=== PATIENT | female | born 1965 | race Caucasian/White ===

== ENCOUNTER 2022-10-04 00:42 | Inpatient (IN) | payer SELFPAY ==
[2022-10-04] VITALS (59 sets, daily range): BP systolic 87–185; BP diastolic 46–133; PULSE 71–159; RESP 16–27; TEMP 36.1–37.2; O2SAT 89–98; BMI 38.2
--- NOTE | 2022-10-04 00:55 | ECG_ITS ---
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 Measurements Intervals [place] Rate: 155 P: 0 [place]: 0 QRS: -33 QRSD: 95 T: 87 QT: 304 QTc: 488 Interpretive Statements ATRIAL FIBRILLATION WITH RAPID VENTRICULAR RESPONSE WITH ABERRANT CONDUCTION OR VENTRICULAR PREMATURE COMPLEXES LEFT AXIS DEVIATION [QRS AXIS < -30] MINIMAL VOLTAGE CRITERIA FOR LVH, CONSIDER NORMAL VARIANT [MEETS CRITERIA IN ONE OF: R(aVL), S(V1), R(V5), R(V5/V6)+S(V1)] POSSIBLE ANTERIOR MYOCARDIAL INFARCTION , PROBABLY OLD [30 ms Q WAVE IN V3/V4, OR R < 0.2 mV IN V4] ST DEPRESSION, CONSIDER SUBENDOCARDIAL INJURY [0.1+ mV ST DEPRESSION] CRITICAL TEST RESULT No previous ECG available for comparison Electronically Signed On 10-04-2022 16:44:38 EXPLOSIVE EXPERT by Mary Zavaleta M.D. [id number]
--- NOTE | 2022-10-04 01:10 | ED_ITS ---
HPI - Nausea/Vomiting/Diarrhea General: Chief complaint: Nausea/Vomiting/Diarrhea Stated complaint: V\ABD Pain, Heart Racing Time Seen by Provider: 10/04/22 00:57 Source: patient Mode of arrival: ambulatory Limitations: no limitations History of Present Illness: 57-year-old female states she has been having nausea and vomiting this evening states she has not felt well she states that she has had multiple episodes of vomiting she had some epigastric abdominal pain she had some palpitations her heart rate here is elevated as well with A-fib with RVR she denies any shortness of breath denies any fever. Associated nausea: Yes Associated symtoms: Reports nausea; Denies chest pain, dysuria or headache(s) Review of Systems Const: Denies: fever(s), chills, body aches or change in appetite Eyes: Denies: blurry vision or eye discomfort ENMT: Denies: throat pain or dental pain Card: Denies: chest pain Resp: Denies: dyspnea GI: Reports: abdominal pain, nausea and vomiting : Denies: dysuria Musc: Denies: neck pain or back pain Skin/Breast: Denies: rash Neuro: Denies: headache(s) Psych: Denies: depression Richardson/Lymph: Denies: easy bruising All/Imm: Denies: urticaria PFSH ED PFSH: Medical History (Updated 10/04/22 @ 03:36 by Puja Dubois MD) No pertinent past medical history Social History (Updated 10/04/22 @ 01:12 by Puja Dubois MD) Substance/Drug Use: never Physical Exam Const: COMMON NORMALS: patient oriented x3 GENERAL APPEARANCE: ill appearing HENMT: COMMON NORMALS: normocephalic and atraumatic HEAD & SCALP: normocephalic and atraumatic Eye: COMMON NORMALS: Equal, round and reactive pupils present and EOMs intact bilaterally PUPIL: Yes Equal, round and reactive pupils present Neck/C-Spine: COMMON NORMALS: full ROM and supple Chest: COMMONS NORMALS: normal inspection of the chest and normal palpation of entire chest wall Resp: COMMON NORMALS: normal respiratory effort, No retractions, No use of accessory muscles and clear to auscultation bilaterally AUSCULTATION: clear to auscultation bilaterally Cardio: COMMON NORMALS: No murmurs present (Cardio) RATE: tachycardic RHYTHM: abnormal rhythm irregularly irregular GI: COMMON NORMALS: Normal to inspection, nondistended, normoactive bowel sounds present, Soft to palpation, non-tender and no masses PALPATION: Yes Soft to palpation Extremity: COMMON NORMALS: normal to inspection and full ROM Neuro: COMMON NORMALS: patient oriented x3, moves all extremities and no focal motor deficits Psych: COMMON NORMALS: mental status grossly normal, Normal thought process present and cooperative THOUGHT PROCESS: Normal thought process present Skin: COMMON NORMALS: no rashes or lesions noted and no wounds GENERAL SKIN EXAM: no rashes or lesions noted Course Vital Signs: Vital signs: Vital Signs Temperature 97.0 F L 10/04/22 00:50 Pulse Rate 116 H 10/04/22 02:50 Respiratory Rate 20 H 10/04/22 02:50 Blood Pressure 134/85 10/04/22 02:50 Pulse Oximetry 96 10/04/22 02:50 Oxygen Delivery Me thod 10/04/22 02:50 MDM - Nausea/Vomiting/Diarrhea Medical Decision Making Patient presents here with A-fib with RVR she also has appendicitis patient st rae on a Cardizem drip she is also on IV antibiotics spoke to hospitalist along with surgeon will admit at this time. Lab Data 10/04/22 01:20 10/04/22 01:20 Radiology Impressions Chest X-Ray 10/04/22 01:10 IMPRESSION: No acute findings. Abdomen/Pelvis CT 10/04/22 01:28 IMPRESSION: Positive for acute appendicitis. No convincing evidence of perforation. ADDENDUM: 10/04/22 0318 THIS REPORT CONTAINS FINDINGS THAT MAY BE CRITICAL TO PATIENT CARE. The findings were verbally communicated via telephone conference with PUJA DUBOIS at 3:17 AM CLINICAL APPLICATIONS SPECIALIST on 10/04/2022. The findings were acknowledged and understood. Laboratory Results WBC 20.3 10^3/uL (4.0-10.0) H 10/04/22 01:20 RBC 5.29 10^6/uL (4.1-5.3) 10/04/22 01:20 Hgb 15.9 g/dL (11.5-15.3) H 10/04/22 01:20 Hct 46.8 % (37.0-47.0) 10/04/22 01:20 MCV 88.5 fl (81-99) 10/04/22 01:20 MCH 30.1 pg (28.0-34.0) 10/04/22 01:20 MCHC 34.0 g/dL (30.0-36.0) 10/04/22 01:20 RDW 13.6 % (12.1-15.1) 10/04/22 01:20 Plt Count 354 10^3/cmm (130-400) 10/04/22 01:20 MPV 10.3 fL (7.4-10.4) 10/04/22 01:20 Neut % (Auto) 85.1 % 10/04/22 01:20 Lymph % (Auto) 10.5 % 10/04/22 01:20 [place] % (Auto) 3.1 % 10/04/22 01:20 Eos % (Auto) 0.2 % 10/04/22 01:20 Baso % (Auto) 0.3 % 10/04/22 01:20 Neut # (Auto) 17.27 10^3/uL (1.8-7.7) H 10/04/22 01:20 Lymph # (Auto) 2.1 10^3/uL (0.8-4.8) 10/04/22 01:20 [place] # (Auto) 0.6 10^3/uL (0.2-0.9) 10/04/22 01:20 Eos # (Auto) 0.0 10^3/uL (0.0-0.8) 10/04/22 01:20 Baso # (Auto) 0.1 10^3/uL (0.0-0.1) 10/04/22 01:20 Nucleated RBC % (auto) 0 % 10/04/22 01:20 Nucleated RBCs # 0.0 /100WBC 10/04/22 01:20 Sodium 137 mmol/L (136-145) 10/04/22 01:20 Potassium 3.5 mmol/L (3.5-5.1) 10/04/22 01:20 Chloride 93 mmol/L (98-107) L 10/04/22 01:20 Carbon Dioxide 23 mmol/L (22-29) 10/04/22 01:20 Anion Gap 24.5 (5-19) H 10/04/22 01:20 BUN 19 mg/dL (6-20) 10/04/22 01:20 Creatinine 0.8 mg/dL (0.5-0.9) 10/04/22 01:20 GFR Calculation 73.9 mL/min (90-130) L 10/04/22 01:20 Glucose 180 mg/dL (65-115) H 10/04/22 01:20 Calculated Osmolality 291 mOsm/kg (285-295) 10/04/22 01:20 Calcium 10.3 mg/dL (8.5-10.5) 10/04/22 01:20 Total Bilirubin 0.5 mg/dL (0.15-1.2) 10/04/22 01:20 AST 21 U/L (0-32) 10/04/22 01:20 ALT 29 U/L (0-33) 10/04/22 01:20 Alkaline Phosphatase 50 U/L (35-105) 10/04/22 01:20 Troponin T Baseline 7 ng/L (0-10) 10/04/22 01:20 Total Protein 8.5 g/dL (6.6-8.7) 10/04/22 01:20 Albumin 4.7 g/dL (3.5-5.2) 10/04/22 01:20 Globulin 3.8 g/dL (1.3-4.6) 10/04/22 01:20 Lipase 38 U/L (13-60) 10/04/22 01:20 Urine Color Colorless (Yellow) 10/04/22 02:42 Urine Appearance Clear (CLEAR) 10/04/22 02:42 Urine pH 5 (5-7) 10/04/22 02:42 Ur Specific [place] 1.020 (1.005-1.030) 10/04/22 02:42 Urine Protein 3+ (Negative) H 10/04/22 02:42 Urine Glucose (UA) Trace (Normal) H 10/04/22 02:42 Urine Ketones 1+ (Negative) H 10/04/22 02:42 Urine Blood 2+ (Negative) H 10/04/22 02:42 Urine Nitrate Negative (Negative) 10/04/22 02:42 Urine Bilirubin Neg (Negative) 10/04/22 02:42 Urine Urobilinogen Norm mg/dL (Negative) 10/04/22 02:42 Ur Leukocyte Esterase Negative (Negative) 10/04/22 02:42 Urine RBC 0-4 /hpf (0-2) H 10/04/22 02:42 Urine WBC 0-4 /hpf (0-5) H 10/04/22 02:42 Ur Squamous Epith Cells 5-10 /hpf (0-5) H 10/04/22 02:42 Amorphous Sediment Not Reportable 10/04/22 02:42 Urine Bacteria None /hpf (NONE) 10/04/22 02:42 Urine Yeast Trace /hpf 10/04/22 02:42 EKG Data EKG 1: I personally reviewed and interpreted this EKG as follows: EKG interpretation date: 10/04/22 EKG interpretation time: 01:01 Interpretation: afib with rvr hr [address] or t wave abnormalities qrs 95 qtc 391 Critical Care Time Critical Care Time: Critical Care Time: Yes Total Critical Care Time: 40 Attestation: The high probability of a clinically significant, sudden or life threatening deterioration of the patient's cv system(s) required my full and direct attention, intervention and personal management. The critical care time is as shown. This time is in addition to time spent performing any reported procedures but includes the following: [x] Data and vital sign review and interpretation [x] Patient assessment, examination and intervention [x] Documentation [x] Medication orders and management Discharge Plan Discharge Patient Disposition: Admitted As Inpatient Clinical Impression: Atrial fibrillation with RVR, Acute appendicitis Coding Level of Care Code ED Rack Room Worker for Jamison Aparicio
--- NOTE | 2022-10-04 01:10 | XRR_ITS ---
PROCEDURE INFORMATION: Exam: XR Chest Exam date and time: 10/04/2022 1:58 AM Age: 57 years old Clinical indication: Pain; Chest pressure; Patient HX: C/O chest discomfort. Diaphoretic and hypertensive. ; Additional info: Chest pain TECHNIQUE: Imaging protocol: Radiologic exam of the chest. Views: 1 view. COMPARISON: No relevant prior studies available. FINDINGS: Lungs: Unremarkable. No consolidation. Pleural spaces: Unremarkable. No pleural effusion. No pneumothorax. Heart/Mediastinum: Unremarkable. No cardiomegaly. Bones/joints: Unremarkable. XR/XR chest 1V portable [id number] IMPRESSION: No acute findings.
[2022-10-04] MEDS: dilTIAZem 5 mg/mL SDV 5 mL 20 MG IVP (01:19)
[2022-10-04] MEDS: ondansetron 2 mg/ML SDV 2 mL 4 MG IVP ×2 (01:19→05:54)
[2022-10-04] MEDS: sodium chloride 0.9% 1,000 ML 999 ML IV (01:19)
[2022-10-04 01:27] LABS: Basophils # 0.1 10^3/uL (0.0-0.1); Basophils % 0.3 %; Eosinophils % 0.2 %; Hematocrit 46.8 % (37.0-47.0); Hemoglobin 15.9 g/dL (11.5-15.3); Lymphocytes # 2.1 10^3/uL (0.8-4.8); Lymphocytes % 10.5 %; Mean Corpuscular Hemoglobin 30.1 pg (28.0-34.0); Mean Corpuscular Volume 88.5 fl (81-99); Mean Platelet Volume 10.3 fL (7.4-10.4); Monocytes # 0.6 10^3/uL (0.2-0.9); Monocytes % 3.1 %; Neutrophils # 17.27 10^3/uL (1.8-7.7); Neutrophils % 85.1 %; Nucleated Red Blood Cells % 0 %; Platelet Count 354 10^3/cmm (130-400); Red Blood Count 5.29 10^6/uL (4.1-5.3); Red Cell Distribution Width 13.6 % (12.1-15.1); White Blood Count 20.3 10^3/uL (4.0-10.0)
--- NOTE | 2022-10-04 01:28 | CTR_ITS ---
PROCEDURE INFORMATION: Exam: CT Abdomen And Pelvis With Contrast Exam date and time: 10/04/2022 2:10 AM Age: 57 years old Clinical indication: Abdominal pain; Patient HX: C/O epigastric pain; Additional info: Abd pain TECHNIQUE: Imaging protocol: Computed tomography of the abdomen and pelvis with contrast. Radiation optimization: All CT scans at this facility use at least one of these dose optimization techniques: automated exposure control; mA and/or kV adjustment per patient size (includes targeted exams where dose is matched to clinical indication); or iterative reconstruction. Contrast material: OMNI 350; Contrast volume: 100 ml; Contrast route: INTRAVENOUS (IV); REPORTING DATA: Count of CT and Cardiac NM exams in prior 12 months: This patient has received 0 known CTs and 0 known cardiac nuclear medicine studies in the 12 months prior to the current study. COMPARISON: CR (CHEST, ) 10/04/2022 1:58 AM RADIATION DOSE METRICS: Total DLP (mGy-cm): 1017.86 FINDINGS: Lungs: Small calcified granuloma within the lingula. Liver: Normal. No mass. Gallbladder and bile ducts: Normal. No calcified stones. No ductal dilation. Pancreas: Normal. No ductal dilation. Spleen: Normal. No splenomegaly. Adrenal glands: Normal. No mass. Kidneys and ureters: Normal. No hydronephrosis. Stomach and bowel: Unremarkable. No obstruction. No mucosal thickening. Appendix: Abnormally dilated appendix measuring 12 mm transverse diameter. Mild periappendiceal fat stranding. Intraluminal appendicoliths. Intraperitoneal space: Unremarkable. No free air. No significant fluid collection. Vasculature: Unremarkable. No abdominal aortic aneurysm. Lymph nodes: Unremarkable. No enlarged lymph nodes. Urinary bladder: Unremarkable as visualized. Reproductive: Unremarkable as visualized. Bones/joints: Unremarkable. No acute fracture. Soft tissues: Unremarkable. CT/CT abdomen pelvis w con* [id number] IMPRESSION: Positive for acute appendicitis. No convincing evidence of perforation.
[2022-10-04 01:47] LABS: Alanine Aminotransferase 29 U/L (0-33); Albumin Level 4.7 g/dL (3.5-5.2); Alkaline Phosphatase 50 U/L (35-105); Anion Gap 24.5 (5-19); Aspartate Amino Transferase 21 U/L (0-32); Blood Urea Nitrogen 19 mg/dL (6-20); Calcium 10.3 mg/dL (8.5-10.5); Carbon Dioxide 23 mmol/L (22-29); Chloride 93 mmol/L (98-107); Globulin 3.8 g/dL (1.3-4.6); Glomerular Filtration Rate 73.9 mL/min (90-130); Glucose 180 mg/dL (65-115); Lipase 38 U/L (13-60); Osmolality Calculated 291 mOsm/kg (285-295); Potassium 3.5 mmol/L (3.5-5.1); Sodium 137 mmol/L (136-145); Total Bilirubin 0.5 mg/dL (0.15-1.2); Total Protein 8.5 g/dL (6.6-8.7)
[2022-10-04] MEDS: lidocaine 2% viscous 15 ML, aluminum-mag hydrox-simethicon 30 ML, sucralfate oral liq 1 GM PO (01:48)
[2022-10-04 01:49] LABS: Troponin(5th) Baseline 7 ng/L (0-10)
[2022-10-04] MEDS: dilTIAZem 100 MG in sodium chloride 0.9% (add-van) 100 ML IV (01:50)
[2022-10-04] MEDS: iohexol 350 mg/mL 500 mL Btl (per mL) IV (02:12)
--- NOTE | 2022-10-04 02:33 | ECG_ITS ---
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 Measurements Intervals [place] Rate: 123 P: 0 [place]: 0 QRS: -27 QRSD: 88 T: 47 QT: 332 QTc: 476 Interpretive Statements ATRIAL FIBRILLATION WITH RAPID VENTRICULAR RESPONSE POSSIBLE ANTERIOR MYOCARDIAL INFARCTION , PROBABLY OLD [30 ms Q WAVE IN V3/V4, OR R < 0.2 mV IN V4] ABNORMAL RHYTHM ECG Compared to ECG 10/04/2022 01:01:11 Ventricular premature complex(es) no longer present Aberrant conduction of supraventricular beat(s) no longer present Left-axis deviation no longer present ST (T wave) deviation no longer present Myocardial infarct finding still present Electronically Signed On 10-04-2022 16:51:54 BONDERIZER OPERATOR by Mary Zavaleta M.D. [id number]
[2022-10-04] MEDS: dilTIAZem 5 mg/mL SDV 5 mL 10 MG IVP ×2 (02:46→09:02)
[2022-10-04 03:10] LABS: Bilirubin Urine Neg (Negative); Blood Urine 2+ (Negative); Glucose Urine UA Trace (Normal); Ketones Urine 1+ (Negative); Leukocyte Esterase Urine Negative (Negative); Nitrate Urine Negative (Negative); Protein Urine 3+ (Negative); Urine Appearance Clear (CLEAR); Urine Color Colorless (Yellow); Urobilinogen Urine Norm (Negative); pH Urine 5 (5-7)
[2022-10-04 03:11] LABS: Add Urine Microscopic? YES
[2022-10-04 03:14] LABS: RBC Urine 0-4 /hpf (0-2); WBC Urine 0-4 /hpf (0-5)
[2022-10-04] MEDS: piperacillin-tazobactam 3.375 GM in sodium chloride 0.9% (plus) 50 ML IV ×3 (03:43→19:32)
[2022-10-04 04:20] LABS: Troponin 5 2HR 22.45 ng/L (0-10)
[2022-10-04 04:23] LABS: Troponin 5 2HR Delta 15.45 ABS# (0-10)
[2022-10-04] MEDS: famotidine 20 mg/2 mL INJ IVP (05:54)
[2022-10-04] MEDS: amiodarone 50 mg/mL SDV 3 mL 150 MG IVP (06:10)
[2022-10-04 06:24] LABS: NT Pro B Type Natriuretic Pept 80 pg/mL (0-125); Procalcitonin 0.04 ng/mL (0-0.5)
--- NOTE | 2022-10-04 06:24 | P.HP_ITS ---
Providers/Chief Complaint Admitting Physician: Tony Ochoa MD Chief Complaint: V\ABD Pain, Heart Racing History of Present Illness Sayra Mascorro is a 57 year old female with only past medical history of hypertension on medications presented to the ER with abdominal pain in the right lower quadrant along with nausea but no vomiting for last 24 to 36 hours. Patient is not aware if she is passing flatus with last bowel movement yesterday morning. Patient is not complaining of chest pain, palpitation, difficulty in breathing, dizziness. In the ER CT abdomen pelvis was concerning for acute appendicitis and she was found to be in atrial fibrillation with rapid ventricular response. Surgery was consulted and medicine team was consulted for admission further evaluation and management. On examination patient was sitting comfortably in bed without any distress with heart rate ranging in 130s on a Cardizem drip of 15. Review of Systems General: Reports: 10 or more systems reviewed and unremarkable except in HPI and below Const: Denies: fever(s), chills, body aches, change in appetite, change in weight, malaise, night sweats, diaphoresis, change in sleep pattern, daytime sleepiness or snoring Eyes: Denies: change in vision, blurry vision, photophobia, eye discomfort or eye discharge ENMT: Denies: throat pain, enlarged tonsils, hoarseness, mouth pain, oral sores, dry mouth, tinnitus, nasal congestion or post nasal drip Card: Denies: chest pain, palpitations, irregular heart rhythm, edema, swelling of feet/ankles, lightheadedness, syncope, pre-syncope, dyspnea on exertion, orthopnea, leg pain with exertion or acrocyanosis Resp: Denies: dyspnea, productive cough, non-productive cough, wheezing, stridor, pain on inspiration, change in phlegm color, hemoptysis or chest congestion GI: Denies: abdominal pain, nausea, vomiting, hematemesis, coffee ground emesis, dysphagia, heartburn, diarrhea, constipation, bloating, GI cramping, change in bowel habits, pain on defecation, hematochezia or melena : Denies: flank pain, dysuria, urinary frequency, urinary urgency, urinary hesitancy, nocturia or hematuria Musc: Denies: neck pain, back pain, extremity pain, joint pain, joint swelling, joint redness, joint stiffness or limited range of motion Neuro: Denies: headache(s), numbness in extremities, weakness in extremities, sensory changes, lack of coordination, difficulty walking, frequent falls, dizziness, vertigo, confusion, Slurred speech present, difficulty communicating thoughts or seizure-like activity Psych: Denies: anxiety, depression, mood swings, panic attacks, hopelessness or irritability Endo: Denies: polyuria, polydipsia, tired all the time, cold intolerance, excessive sweating, flushing or heat intolerance Richardson/Lymph: Denies: easy bruising or easy bleeding All/Imm: Denies: tongue swelling, facial swelling or acute wheezing Medications/Allergies Home Medications Medication Instructions Recorded Confirmed Last Taken Type Unable to Assess 10/04/22 10/04/22 Unknown History Allergies Allergy/AdvReac Type Severity Reaction Status Date / Time No Known Allergies Allergy Verified 10/04/22 00:50 PFSH Acute PFSH: Medical History (Updated 10/04/22 @ 06:29 by Tony Ochoa MD) Hypertension Surgical History (Updated 10/04/22 @ 06:27 by Tony Ochoa MD) No pertinent past surgical history Family History (Updated 10/04/22 @ 06:27 by Tony Ochoa MD) Denies family history of CAD (coronary artery disease) Chronic kidney disease (CKD) Cancer Social History (Updated 10/04/22 @ 06:28 by Tony Ochoa MD) Smoking and tobacco status: former smoker Alcohol intake: never Substance/Drug Use: never Caregiver/support person: Yes Lives independently: Yes Household members: family Housing: House Vitals/I&O/Wt Last Vital Signs Temp 98.1 F 10/04/22 04:00 Pulse 126 H 10/04/22 06:15 Resp 26 H 10/04/22 06:15 BP 164/100 10/04/22 06:15 Pulse Ox 95 10/04/22 06:15 O2 Del Method 10/04/22 04:30 10/03/22 10/03/22 10/04/22 14:59 22:59 06:59 Intake Total 1079.201 / 1079.201 Output Total 0 / 0 Balance 1079.201 / 1079.201 Weight last 48 hrs Weight 108.182 kg Weight 104.326 kg Physical Exam Narrative: General: No acute distress, AO x3 HEENT: PERRLA, pupils bilaterally equal and reactive Chest: Normal vesicular breath sounds, no added sounds, equal good air entry bilaterally CVS: S1-S2 regular, no murmurs, no tachycardia, no gallops, no rubs Abdomen: Soft, distended, tender in right lower quadrant, bowel sounds sluggish, no organomegaly, Neuro: No focal deficits, no facial deformity, AO x3, power 5/5 in all limbs Data 10/04/22 01:20 10/04/22 01:20 Micro: Microbiology 10/04/22 02:42 Legionella Urinary Antigen - Final Unknown Source A&P Assessment and plan (1) Acute appendicitis: As seen on CT scan. No concerns for perforation. Surgery has been consulted. NPO. Empirically start on Zosyn. D5 NS at 75 cc/h. (2) Atrial fibrillation with RVR: Even though she is on Cardizem for 15 patient remains in RVR. We will switch to amiodarone. Amiodarone 150 mg IV bolus followed by drip as per protocol. Bryan Vasc score: 2 for hypertension and female sex. Discussed in detail with patient regarding need for anticoagulation for stroke prevention. Patient verbalized understanding and is agreeable. For now start on heparin drip with possible concern for patient going to the OR for appendicitis. Can stop 2 hours prior to the OR. Patient will need to be discharged on oral anticoagulation. Patient is agreeable. Echocardiogram once heart rate less than 100. (3) Hypertension: Goal blood pressure less than 140 over 90 mmHg. Start on IV hydralazine 10 mg every 4 hours as needed for systolic blood pressure of more than 170 mmHg. (4) Leukocytosis: Most likely reactive in setting of acute appendicitis. Cannot rule out acute infection. Empiric Zosyn as above. Check blood culture. Plan Full code. Heparin drip will suffice as DVT prophylaxis NPO. Famotidine for PUD prophylaxis Admit to CSU. Attestations Medical Necessity Statement*: Admission for more than 2 months atrial fibrillation with rapid ventricular response, acute appendicitis Diagnoses Acute appendicitis K35.80 Atrial fibrillation with RVR I48.91 Hypertension I10 Leukocytosis D72.829
[2022-10-04 06:25] LABS: Magnesium 1.6 mg/dL (1.7-2.3); Phosphorus 3.4 mg/dL (2.5-4.5); Thyroid Stimulating Hormone 1.41 uIU/mL (0.27-4.20)
[2022-10-04 06:37] LABS: Amphetamines Screen Urine Negative (Negative); Barbiturates Screen Urine Negative (Negative); Benzodiazepines Screen Urine Negative (Negative); Cocaine Screen Urine Negative (Negative); Opiate Screen Urine Negative (Negative); PCP Screen Urine Negative (Negative); THC Screen Urine Negative (Negative)
[2022-10-04 06:38] LABS: Folate Level 6.8 ng/mL (4.8-37.3)
[2022-10-04] MEDS: dextrose 5%-sod chloride 0.9% 1,000 ML 75 ML IV (06:40)
[2022-10-04] MEDS: heparin 5,000 unit/mL INJ 1 mL IV (06:44)
[2022-10-04] MEDS: heparin drip 25,000 UNIT/500 ML PREMIX 31 UNIT IV (06:47)
[2022-10-04] MEDS: hyDRALAzine 20 mg/mL INJ 1 mL 10 MG IVP (06:55)
--- NOTE | 2022-10-04 06:57 | ECG_ITS ---
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 Measurements Intervals [place] Rate: 134 P: 0 [place]: 0 QRS: -27 QRSD: 89 T: 42 QT: 326 QTc: 488 Interpretive Statements ATRIAL FIBRILLATION WITH RAPID VENTRICULAR RESPONSE POSSIBLE ANTERIOR MYOCARDIAL INFARCTION , PROBABLY OLD [30 ms Q WAVE IN V3/V4, OR R < 0.2 mV IN V4] ABNORMAL RHYTHM ECG Compared to ECG 10/04/2022 02:33:56 No significant changes Electronically Signed On 10-04-2022 16:52:08 LEGAL BILLER by Mary Zavaleta M.D. [id number]
[2022-10-04 07:02] LABS: Iron 39 ug/dL (37-145); Percent Saturation 8.3 % (20-50); Total Iron Binding Capacity 466 mcg/dl; Unsaturated Iron Binding 427 ug/dL (112-347)
[2022-10-04 07:17] LABS: Vitamin B12 628 pg/mL (232-1245)
[2022-10-04] MEDS: morphine 4 mg/mL SDV 1 mL 2 MG IVP ×2 (08:06→12:32)
[2022-10-04] MEDS: metoprolol tartrate 1 mg/1 mL SDV 5 mL 5 MG IVP (08:06)
--- NOTE | 2022-10-04 09:30 | PM.MISC ---
Miscellaneous Note Note: She was seen and examined Patient has no history of previous A-fib No active chest pain or shortness of breath complaining of right lower quadrant. Patient lying comfortably in her bed Currently A-fib RVR heart rate 130s Hypertensive Currently on room air Right lower quadrant pain N.p.o. Looks dehydrated Plan Hold heparin in case she goes for surgical intervention today Add Cardizem to amiodarone to control her A-fib heart rate has been ranging between 130s to 140s Blood pressure is high 150s/96 mmHg She was given IV metoprolol this morning as well which did not show much improvement as well We will do echo once heart rate is below 110 Full code N.p.o. Continue IV fluids and antibiotics We will follow-up with general surgery
[2022-10-04 09:42] LABS: Troponin 5 6HR 34.74 ng/L (0-10)
[2022-10-04 09:47] LABS: Troponin 5 6HR Delta 27.74 ng/L (0-12)
--- NOTE | 2022-10-04 10:25 | P.CONIM_ITS ---
Providers/Reason For Consult Consulting Physician/Specialty*: Emergency room physician Reason for Consult*: Acute appendicitis Attending Physician: Tony Ochoa MD History of Present Illness History of Present Illness Sayra Mascorro is a 57 year old female presents to the emergency room with sudden onset of right lower quadrant pain, nausea and vomiting. Patient had multiple episodes of emesis. The patient also noticed a fluttering in her heart. The patient's never had abdominal surgery before. The patient never had pain like this before. The patient's last normal bowel movement was yesterday. The patient denies any history of weight loss. There is nobody sick in the house. The patient describes her pain as constant and crampy. Review of Systems General: Reports: 10 or more systems reviewed and unremarkable except in HPI and below Medications/Allergies Home Medications Medication Instructions Recorded Confirmed Last Taken Type Unable to Assess 10/04/22 10/04/22 Unknown History Allergies Allergy/AdvReac Type Severity Reaction Status Date / Time No Known Allergies Allergy Verified 10/04/22 00:50 Current Medications Generic Name Dose Route Start Last Admin Trade Name Freq PRN Reason Stop Dose Admin Famotidine 20 mg 10/04/22 05:45 10/04/22 05:54 Famotidine 20 Mg/2 Ml Inj IVP 20 mg Q12H JOHNATHON Administration Heparin Sodium (Porcine) 0 unit 10/04/22 05:43 10/04/22 06:44 Heparin 5,000 Unit/Ml Inj 1 Ml IV 5,500 unit PRN PRN Administration Heparin weight-base protocol Protocol Hydralazine HCl 10 mg 10/04/22 06:26 10/04/22 06:55 Hydralazine 20 Mg/Ml Inj 1 Ml IVP 10 mg Q4H PRN Administration SBP more than 170 mmhg Amiodarone HCl 900 mg/ 518 mls @ 0 mls/hr 10/04/22 05:45 10/04/22 06:10 Dextrose/ IV Miscellaneous IV 0 mg/min Supplies .Q0M JOHNATHON 0 mls/hr Titration Protocol Per Protocol Dextrose/Sodium Chloride 1,000 mls @ 75 mls/hr 10/04/22 05:45 10/04/22 06:40 Dextrose 5%-Sod Chloride 0.9% IV 75 mls/hr .[id number] JOHNATHON Administration Heparin Sodium/Sodium Chloride 25,000 unit in 500 mls @ 0 mls/hr 10/04/22 05:45 10/04/22 06:47 Heparin Drip IV 14.86 unit/kg/hr .Q0M JOHNATHON 31 mls/hr Administration Protocol Per Protocol Morphine Sulfate 2 mg 10/04/22 05:43 10/04/22 08:06 Morphine 4 Mg/Ml Sdv 1 Ml IVP 2 mg Q4H PRN Administration SEVERE PAIN Ondansetron HCl 4 mg 10/04/22 05:43 10/04/22 05:54 Ondansetron 2 Mg/Ml Sdv 2 Ml IVP 4 mg Q8H PRN Administration vomiting, or N/V if npo PFSH Acute PFSH: Medical History Hypertension Surgical History No pertinent past surgical history Family History Denies family history of CAD (coronary artery disease) Chronic kidney disease (CKD) Cancer Social History Smoking and tobacco status: former smoker Alcohol intake: never Substance/Drug Use: never Caregiver/support person: Yes Lives independently: Yes Household members: family Housing: House Vitals/I&O/Wt Last Vital Signs Temp 98.1 F 10/04/22 04:00 Pulse 129 H 10/04/22 08:15 Resp 18 10/04/22 08:15 BP 150/96 10/04/22 08:15 Pulse Ox 96 10/04/22 08:15 O2 Del Method 10/04/22 08:15 10/03/22 10/04/22 10/04/22 22:59 06:59 14:59 Intake Total 1106.201 / 1106.201 Output Total 0 / 0 Balance 1106.201 / 1106.201 Weight last 48 hrs Weight 238 lb 8 oz Weight 230 lb Physical Exam Narrative: Generally: An obese female. Currently, in no acute distress HEENT has no cephalic atraumatic, pupils equal round reactive to light. Extr aocular muscles are intact Neck: Free range of motion and nontender. The patient's trachea is midline. There is no thyromegaly Lungs: Clear to auscultation and percussion Heart: Irregular rate and rhythm and tachycardic. I do not appreciate a murmur. Abdomen: Obese, right lower quadrant tenderness with rebound. Patient has positive bowel sounds. There is no rushes or tinkles. There is no hernias that I can appreciate. There is no hepatosplenomegaly Extremities: There is no clubbing cyanosis or edema Neurologic: Patient is awake, alert, oriented x3. Patient moves all 4 extremities without difficulty. The patient sensations intact to light touch throughout Urinary Catheter Management: 2-way Urethral Latex Free: Cath Placed During This Visit: yes Reason for Continuing Indwelling Catheter: Perioperative Use in Selected Surgeries Urinary Catheter Date of Insertion: 10/04/22 Urinary Catheter Time of Insertion: 08:02 Data 10/04/22 01:20 10/04/22 01:20 Micro: Microbiology 10/04/22 09:12 Blood Culture - Preliminary Blood SPECIMEN COLLECTED 10/04/22 09:10 Blood Culture - Preliminary Blood SPECIMEN COLLECTED 10/04/22 02:42 Legionella Urinary Antigen - Final Unknown Source Attestation for Other Data: I personally reviewed and interpreted the following: (I have reviewed all the patient's labs including the CT scan of the abdomen and pelvis.) A&P Assessment and plan (1) Acute appendicitis: We will schedule the patient for a laparoscopic appendectomy. The risk and benefits of the procedure been explained to the patient. The patient seems understand these risk and benefits and would like to proceed. The patient's atrial fibrillation with rapid ventricular response is somewhat complicating. We will let anesthesia work with internal medicine to try to get this under control. Medical decision making: High Coding Level of Care Code 06543 Diagnoses Acute appendicitis K35.80
--- NOTE | 2022-10-04 10:51 | PC.CHAP ---
Pastoral Care Encounter/Spiritual Assessment Type of Contact [] Declined motion picture equipment supervisor visit [] Patient/Family/Request visit [] Outpatient visit [] Follow-up visit [] Physician referral [] Code/Alert [x] Routine visit [] Staff referral [] Actively dying [] Patient sleeping [x] Family support [] [] Out of room [] Palliative care [] [] Receiving care in room [] Pre-surgical visit [] Trauma [] Long length of stay [] ICU visit [] Other: Relational/Emotional Strength [x] Patient feels connected with others/family/visitors/staff [] Distress [] Loneliness/isolation [] Abandonment Spirituality of Patient [x] Person of Brigitte [] Attends Rastafari of their Brigitte [x Believes in Prayer [] Reads Bible or Temple materials [] There are Spiritual issues to be addressed Mobile Phone Salesperson Interventions [x] Prayer [x] Active listening [x] Non-anxious presence [x] Spiritual/emotional support [] Crisis/trauma care [] Spiritual counseling [] Bereavement support [] Provided bereavement packet [] Provided Bible/devotional materials [] Provided toy/stuffed animal, coloring book to patient or family member [] Provided Communion [] Anointing/[place] [] Salvation [x] Completed spiritual assessment [] Other: Impact on Illness or Injury [] Angry [] Fearful [] Anxious [] Often cries [] Exhaustion [] Unable to work [] Unable to attend amish [] Unable to walk/stand [] Unable to read [] Unable to drive [] Unable to eat/drink [] Unable to sleep [] Unable to be with family [] Patient intubated [] Other: Summary Time spent with patient 10 min
--- NOTE | 2022-10-04 11:14 | PM.CONSULT ---
Providers/Reason For Consult Consulting Physician/Specialty*: [place] MD/ Cardiology Reason for Consult*: Pre-op clearance/ atrial fibrillation Requesting Physician: Dr Guidry Attending Physician: Livia Guidry MD History of Present Illness History of Present Illness Sayra Mascorro is a 57 year old female with no significant prior cardiac history as presented with nausea and vomiting. She is found to have acute appendicitis. Cardiology has been consulted to get preop clearance as she went into A-fib with RVR with heart rates in 130s. She has been started on amiodarone drip. EKG showed A-fib with RVR. At time of my evaluation she has converted back to normal sinus rhythm. Denies significant shortness of breath. Blood pressure is borderline elevated. Review of Systems General: Reports: 10 or more systems reviewed and unremarkable except in HPI and below Const: Denies: fever(s), chills, body aches, change in appetite, change in weight, malaise, night sweats, diaphoresis, change in sleep pattern, daytime sleepiness or snoring Eyes: Denies: change in vision, blurry vision, photophobia, eye discomfort or eye discharge ENMT: Denies: throat pain, enlarged tonsils, hoarseness, mouth pain, oral sores, dry mouth, tinnitus, nasal congestion or post nasal drip Card: Denies: chest pain, palpitations, irregular heart rhythm, edema, swelling of feet/ankles, lightheadedness, syncope, pre-syncope, dyspnea on exertion, orthopnea, leg pain with exertion or acrocyanosis Resp: Denies: dyspnea, productive cough, non-productive cough, wheezing, stridor, pain on inspiration, change in phlegm color, hemoptysis or chest congestion GI: Reports: abdominal pain and nausea; Denies: vomiting, hematemesis, coffee ground emesis, dysphagia, heartburn, diarrhea, constipation, bloating, GI cramping, change in bowel habits, pain on defecation, hematochezia or melena : Denies: flank pain, dysuria, urinary frequency, urinary urgency, urinary hesitancy, nocturia or hematuria Musc: Denies: neck pain, back pain, extremity pain, joint pain, joint swelling, joint redness, joint stiffness or limited range of motion Neuro: Denies: headache(s), numbness in extremities, weakness in extremities, sensory changes, lack of coordination, difficulty walking, frequent falls, dizziness, vertigo, confusion, Slurred speech present, difficulty communicating thoughts or seizure-like activity Psych: Denies: anxiety, depression, mood swings, panic attacks, hopelessness or irritability Endo: Denies: polyuria, polydipsia, tired all the time, cold intolerance, excessive sweating, flushing or heat intolerance Richardson/Lymph: Denies: easy bruising or easy bleeding All/Imm: Denies: tongue swelling, facial swelling or acute wheezing Medications/Allergies Home Medications Medication Instructions Recorded Confirmed Last Taken Type Unable to Assess 10/04/22 10/04/22 Unknown History Allergies Allergy/AdvReac Type Severity Reaction Status Date / Time No Known Allergies Allergy Verified 10/04/22 00:50 Current Medications Generic Name Dose Route Start Last Admin Trade Name Freq PRN Reason Stop Dose Admin Famotidine 20 mg 10/04/22 05:45 10/04/22 05:54 Famotidine 20 Mg/2 Ml Inj IVP 20 mg Q12H JOHNATHON Administration Heparin Sodium (Porcine) 0 unit 10/04/22 05:43 10/04/22 06:44 Heparin 5,000 Unit/Ml Inj 1 Ml IV 5,500 unit PRN PRN Administration Heparin weight-base protocol Protocol Hydralazine HCl 10 mg 10/04/22 06:26 10/04/22 06:55 Hydralazine 20 Mg/Ml Inj 1 Ml IVP 10 mg Q4H PRN Administration SBP more than 170 mmhg Amiodarone HCl 900 mg/ 518 mls @ 0 mls/hr 10/04/22 05:45 10/04/22 06:10 Dextrose/ IV Miscellaneous IV 0 mg/min Supplies .Q0M JOHNATHON 0 mls/hr Titration Protocol Per Protocol Dextrose/Sodium Chloride 1,000 mls @ 75 mls/hr 10/04/22 05:45 10/04/22 06:40 Dextrose 5%-Sod Chloride 0.9% IV 75 mls/hr .[id number] JOHNATHON Administration Heparin Sodium/Sodium Chloride 25,000 unit in 500 mls @ 0 mls/hr 10/04/22 05:45 10/04/22 06:47 Heparin Drip IV 14.86 unit/kg/hr .Q0M JOHNATHON 31 mls/hr Administration Protocol Per Protocol Morphine Sulfate 2 mg 10/04/22 05:43 10/04/22 08:06 Morphine 4 Mg/Ml Sdv 1 Ml IVP 2 mg Q4H PRN Administration SEVERE PAIN Ondansetron HCl 4 mg 10/04/22 05:43 10/04/22 05:54 Ondansetron 2 Mg/Ml Sdv 2 Ml IVP 4 mg Q8H PRN Administration vomiting, or N/V if npo PFSH Acute PFSH: Medical History Hypertension Surgical History No pertinent past surgical history Family History Denies family history of CAD (coronary artery disease) Chronic kidney disease (CKD) Cancer Social History Smoking and tobacco status: former smoker Alcohol intake: never Substance/Drug Use: never Caregiver/support person: Yes Lives independently: Yes Household members: family Housing: House Vitals/I&O/Wt Last Vital Signs Temp 98.1 F 10/04/22 04:00 Pulse 129 H 10/04/22 08:15 Resp 18 10/04/22 08:15 BP 150/96 10/04/22 08:15 Pulse Ox 96 10/04/22 08:15 O2 Del Method 10/04/22 08:15 10/03/22 10/04/22 10/04/22 22:59 06:59 14:59 Intake Total 1106.201 / 1106.201 Output Total 0 / 0 Balance 1106.201 / 1106.201 Weight last 48 hrs Weight 238 lb 8 oz Weight 230 lb Physical Exam Narrative: GENERAL: Patient is alert, awake and oriented x3. [] NECK: No jugular vein distension. [] HEENT: No cyanosis. No icterus. No pallor. [] HEART: Regular S1 and S2. No murmur, rub or gallop. [] LUNGS: Clear to auscultate bilaterally. [] ABDOMEN: Soft, nontender and nondistended. Positive bowel sounds. No guarding, rebound or tenderness. [] CENTRAL NERVOUS SYSTEM: Grossly nonfocal. [] EXTREMITIES: Lower extremities with No edema Urinary Catheter Management: 2-way Urethral Latex Free: Cath Placed During This Visit: yes Reason for Continuing Indwelling Catheter: Perioperative Use in Selected Surgeries Urinary Catheter Date of Insertion: 10/04/22 Urinary Catheter Time of Insertion: 08:02 Data 10/04/22 01:20 10/04/22 01:20 Micro: Microbiology 10/04/22 02:42 Bacterial Antigens - Final Urine Kidney 10/04/22 09:12 Blood Culture - Preliminary Blood SPECIMEN COLLECTED 10/04/22 09:10 Blood Culture - Preliminary Blood SPECIMEN COLLECTED 10/04/22 02:42 Legionella Urinary Antigen - Final Unknown Source A&P Assessment and plan (1) Acute appendicitis: (2) Atrial fibrillation with RVR: (3) Hypertension: Plan Patient's Afib with RVR is secondary to appendicitis. Given acuity of her situation, cardiac clearance will not be needed. We will be available for assitance in case of any hemodynamic instability. Amiodarone started. Patient has converted to normal sinus rhythm and has normal heart rate. She is stable. We will get rest of cardiac workup including echocardiogram after the procedure. Thank you for involving us with care of this patient. We will continue to follow. Please call with questions. Consult Attestations Medical Necessity Statement: Care expected to cross 2 midnights. Coding Level of Care Code Acute Code for [facility] Diagnoses Acute appendicitis K35.80 Atrial fibrillation with RVR I48.91 Hypertension I10
[2022-10-04 14:05] LABS: Partial Thromboplastin Time 29.3 SECONDS (23.9-36.7)
--- NOTE | 2022-10-04 15:34 | ANES.PREANE2 ---
Pre-Anesthetic Assessment Height/Weight: Height 1.65 m Weight 108.182 kg Temp Pulse Resp BP Pulse Ox O2 Del Method 99.0 F 90 18 157/74 95 10/04/22 15:19 10/04/22 15:19 10/04/22 15:19 10/04/22 15:19 10/04/22 15:19 10/04/22 15:19 Preop Diagnosis: acute appy Operation Date: 10/04/22 14:40 Proposed Procedures p Laparoscopic Appendectomy(Not Applicable) - Olu Carbajal MD Familial anesthetic complications: None Was Beta Baldomero taken within 24 hours: Yes Was Clonidine taken within 24 hours: N/A Last intake: Intake Last Liquid Date 10/03/22 Last Liquid Time 17:00 Last Solid Date 10/03/22 Last Solid Time 17:00 Social Tobacco and No alcohol Exam alert, oriented x 3, clear to auscultation bilaterally and regular rate & rhythm Airway Mallampati: Class III Dentition: chipped CV/HEM Arrythmia (A fib w/ RVR (new onset) - now self cardioverted to NSR) and Hypertension Metabolic Morbid Obesity Anesthetic Plan ASA status: 3 Anesthesia: General Risk of > 500 ml blood loss (7ml/kg in children): No Medications/Allergies Home Medications Medication Instructions Recorded Confirmed Last Taken Type Unable to Assess 10/04/22 10/04/22 Unknown History Allergies Allergy/AdvReac Type Severity Reaction Status Date / Time No Known Allergies Allergy Verified 10/04/22 00:50 Current Medications Generic Name Dose Route Start Last Admin Trade Name Freq PRN Reason Stop Dose Admin Famotidine 20 mg 10/04/22 05:45 10/04/22 05:54 Famotidine 20 Mg/2 Ml Inj IVP 20 mg Q12H JOHNATHON Administration Heparin Sodium (Porcine) 0 unit 10/04/22 05:43 10/04/22 06:44 Heparin 5,000 Unit/Ml Inj 1 Ml IV 5,500 unit PRN PRN Administration Heparin weight-base protocol Protocol Hydralazine HCl 10 mg 10/04/22 06:26 10/04/22 06:55 Hydralazine 20 Mg/Ml Inj 1 Ml IVP 10 mg Q4H PRN Administration SBP more than 170 mmhg Piperacillin Sod/Tazobactam 50 mls @ 12.5 mls/hr 10/04/22 12:00 10/04/22 12:32 Sod 3.375 gm/ Sodium Chloride IV 12.5 mls/hr Q8H JOHNATHON Administration Protocol Amiodarone HCl 900 mg/ 518 mls @ 0 mls/hr 10/04/22 05:45 10/04/22 06:10 Dextrose/ IV Miscellaneous IV 0 mg/min Supplies .Q0M JOHNATHON 0 mls/hr Titration Protocol Per Protocol Dextrose/Sodium Chloride 1,000 mls @ 75 mls/hr 10/04/22 05:45 10/04/22 06:40 Dextrose 5%-Sod Chloride 0.9% IV 75 mls/hr .[id number] JOHNATHON Administration Heparin Sodium/Sodium Chloride 25,000 unit in 500 mls @ 0 mls/hr 10/04/22 05:45 10/04/22 06:47 Heparin Drip IV 14.86 unit/kg/hr .Q0M JOHNATHON 31 mls/hr Administration Protocol Per Protocol Morphine Sulfate 2 mg 10/04/22 05:43 10/04/22 12:32 Morphine 4 Mg/Ml Sdv 1 Ml IVP 2 mg Q4H PRN Administration SEVERE PAIN Ondansetron HCl 4 mg 10/04/22 05:43 10/04/22 05:54 Ondansetron 2 Mg/Ml Sdv 2 Ml IVP 4 mg Q8H PRN Administration vomiting, or N/V if npo PFSH Anesthesia Medical History Hypertension Surgical History No pertinent past surgical history Family History Denies family history of CAD (coronary artery disease) Chronic kidney disease (CKD) Cancer Social History Smoking and tobacco status: former smoker Alcohol intake: never Substance/Drug Use: never Caregiver/support person: Yes Lives independently: Yes Household members: family Housing: House Data Anesthesia 10/04/22 01:20 10/04/22 01:20 Short CBC 10/04/22 Range/Units 01:20 WBC 20.3 H (4.0-10.0) 10^3/uL Hgb 15.9 H (11.5-15.3) g/dL Hct 46.8 (37.0-47.0) % MCV 88.5 (81-99) fl Plt Count 354 (130-400) 10^3/cmm Neut % (Auto) 85.1 % Neut # (Auto) 17.27 H (1.8-7.7) 10^3/uL BMP 10/04/22 01:20 Sodium 137 Potassium 3.5 Chloride 93 L Carbon Dioxide 23 BUN 19 Creatinine 0.8 Glucose 180 H Calcium 10.3 Cardiac Enzymes 10/04/22 10/04/22 10/04/22 Range/Units 01:20 01:20 03:55 Troponin T Baseline 7 (0-10) ng/L Troponin T 120 Minute 22.45 H (0-10) ng/L Delta Troponin T 15.45 H* (0-10) ABS# Troponin T Hi Sens 6Hr (0-10) ng/L Troponin T Hi Sens 6Hr Delta (0-12) ng/L NT-Pro-B Natriuret Pep 80 (0-125) pg/mL 10/04/22 Range/Units 09:12 Troponin T Baseline (0-10) ng/L Troponin T 120 Minute (0-10) ng/L Delta Troponin T (0-10) ABS# Troponin T Hi Sens 6Hr 34.74 H (0-10) ng/L Troponin T Hi Sens 6Hr Delta 27.74 H* (0-12) ng/L NT-Pro-B Natriuret Pep (0-125) pg/mL Liver Function 10/04/22 Range/Units 01:20 Total Bilirubin 0.5 (0.15-1.2) mg/dL AST 21 (0-32) U/L ALT 29 (0-33) U/L Alkaline Phosphatase 50 (35-105) U/L Albumin 4.7 (3.5-5.2) g/dL Urine 10/04/22 Range/Units 02:42 Urine Color Colorless (Yellow) Urine Appearance Clear (CLEAR) Urine pH 5 (5-7) Ur Specific [place] 1.020 (1.005-1.030) Urine Protein 3+ H (Negative) Urine Glucose (UA) Trace H (Normal) Urine Ketones 1+ H (Negative) Urine Nitrate Negative (Negative) Urine Bilirubin Neg (Negative) Ur Leukocyte Esterase Negative (Negative) Urine RBC 0-4 H (0-2) /hpf Urine WBC 0-4 H (0-5) /hpf Coags 10/04/22 13:18 APTT 29.3 Microbiology 10/04/22 02:42 Bacterial Antigens - Final Urine Kidney 10/04/22 09:12 Blood Culture - Preliminary Blood SPECIMEN COLLECTED 10/04/22 09:10 Blood Culture - Preliminary Blood SPECIMEN COLLECTED 10/04/22 02:42 Legionella Urinary Antigen - Final Unknown Source Cardiac Studies: No Data to Display
[2022-10-04] MEDS: sodium chloride 0.9% 1,000 ML 30 ML IV (15:36)
--- NOTE | 2022-10-04 16:52 | PM.OP ---
Operative Report Date of procedure: October 04, 2022 Pre-op diagnosis: Acute appendicitis Post-op diagnosis: same Procedure done: Laparoscopic appendectomy Specimens removed/disposition: Appendix Pathology: Appendix Surgeon: Olu Carbajal Anesthesia: General Estimated blood loss: 25 cc Complications: None noted Findings: Thickened inflamed necrotic appendix. The distal tip was clearly necrotic. The appendix tore while we were manipulating it. There was some small spillage of stool. This was irrigated and suctioned clear Condition: stable Disposition: PACU Brief History: Is a 57-year-old female who presents with signs and symptoms of acute appendicitis. The patient underwent a CT scan of her abdomen and pelvis which was consistent with acute appendicitis. The patient had a fecalith. The risk and benefits of laparoscopic appendectomy were explained to the patient. The patient seemed understand these risk and benefits and wanted to proceed. Procedure: Procedure in detail: The patient was brought to the operating placed in the supine position. After adequate general endotracheal anesthesia, the patient's abdomen is prepped and draped in usual sterile fashion. Following this a timeout was performed with the patient's identifiers as well as the goals procedure were discussed and everyone in room and agreed. This patient is morbidly obese the patient's umbilicus was closer to her symphysis pubis than normal. Because of the size chose a spot on the patient's midline that was several centimeters above the umbilicus. I made an incision that was approximately 2 to 3 cm in length. Following this a 12 mm trocar (long trocar) was then placed in the abdomen without difficulty. The patient's abdomen was insufflated to 15 mmHg. A left lower quadrant port was placed under standard technique. This was seen under direct vision. Finally a 5 mm port was placed in the right lower quadrant above the symphysis pubis. This was also placed under direct vision. The patient was placed in Trendelenburg and rolled to the left side down right side up in order for the bowels to follow a from the right lower quadrant. The cecum was easily seen. It was grasped with a [place] and then using blunt dissection the appendix was now seen the appendix was somewhat plastered down to the retroperitoneum with some more blunt dissection were able to get the appendix up. Now using a [place] the appendix was grasped. I had to grasp it several times because it was thickened and we really could not get a good grasp on it because of this the appendix tore and there was some spillage of stool. The stool was immediately suctioned out. Now a window was created in the mesoappendix with the [place]. A SOL stapler was used to transect the appendix. Now because of the orientation of the mesoappendix it was difficult to get the SOL stapler across the mesoappendix. Because of this the LigaSure was used. This was used in a serial fashion to take down the mesoappendix. This was done without difficulty. The appendix was now placed in the Endobag. The patient was now flattened out the right lower quadrant was irrigated with copious amounts of normal saline and the saline was suctioned out of the abdomen. There was a modest amount of blood loss because of the inflammatory tissue. This was also suctioned clear. The appendix and the Endobag was now pulled out of the left lower quadrant incision. There is no bleeding from the incision. The 5 mm port was now removed. There is no bleeding from this site either. The patient was now flattened out. The final port was removed the patient's abdomen is allowed to deflate. The fascia was now reapproximated with 0 Vicryl. A subcuticular stitch of 4-0 Monocryl was used at all 3 sites. Dermabond was now used to close the skin. The patient was awakened and taken to recovery room in stable condition.
--- NOTE | 2022-10-04 18:07 | ANE.PACU2 ---
Inpatient post-anesthesia follow up: Airway intact: Yes Vital signs: Temperature 98.6 F Pulse Rate 80 Respiratory Rate 16 Blood Pressure 105/57 Pulse Oximetry 92 Oxygen Delivery Me thod Room Air Oxygen Flow Rate 2 Fraction of Inspir ed Oxygen Hydration adequate: Yes Nausea and vomiting: No Pain level: 1 Mental status: Baseline
[2022-10-04] MEDS: oxyCODONE 5 mg IR Tab/Cap PO (23:01)
[2022-10-05] VITALS (19 sets, daily range): BP systolic 107–153; BP diastolic 67–74; PULSE 83–93; RESP 16–76; TEMP 36.9; O2SAT 90–96
[2022-10-05] MEDS: oxyCODONE 5 mg IR Tab/Cap PO ×3 (03:44→14:21)
[2022-10-05] MEDS: piperacillin-tazobactam 3.375 GM in sodium chloride 0.9% (plus) 50 ML IV ×2 (03:45→11:05)
[2022-10-05 04:29] LABS: Basophils % 0.2 %; Hematocrit 38.6 % (37.0-47.0); Hemoglobin 12.6 g/dL (11.5-15.3); Lymphocytes # 1.3 10^3/uL (0.8-4.8); Lymphocytes % 6.4 %; Mean Corpuscular HGB Conc 32.6 g/dL (30.0-36.0); Mean Corpuscular Hemoglobin 29.4 pg (28.0-34.0); Mean Corpuscular Volume 90.2 fl (81-99); Mean Platelet Volume 10.7 fL (7.4-10.4); Monocytes # 0.9 10^3/uL (0.2-0.9); Monocytes % 4.7 %; Neutrophils # 17.51 10^3/uL (1.8-7.7); Neutrophils % 88.1 %; Nucleated Red Blood Cells % 0 %; Platelet Count 270 10^3/cmm (130-400); Red Blood Count 4.28 10^6/uL (4.1-5.3); Red Cell Distribution Width 14.1 % (12.1-15.1); White Blood Count 19.8 10^3/uL (4.0-10.0)
[2022-10-05 04:54] LABS: Estmated Average Glucose 103; Hemoglobin A1C 5.2 % (4.0-6.0)
[2022-10-05 04:56] LABS: Alanine Aminotransferase 23 U/L (0-33); Albumin Level 3.8 g/dL (3.5-5.2); Alkaline Phosphatase 48 U/L (35-105); Anion Gap 17.5 (5-19); Aspartate Amino Transferase 22 U/L (0-32); Blood Urea Nitrogen 18 mg/dL (6-20); C Reactive Protein 184.7 mg/L (0.0-4.9); Calcium 8.7 mg/dL (8.5-10.5); Carbon Dioxide 23 mmol/L (22-29); Chloride 96 mmol/L (98-107); Chol HDL Ratio 3.75 mg/dL (0.0-4.40); Cholesterol 165 mg/dL (0-200); Globulin 3.3 g/dL (1.3-4.6); Glomerular Filtration Rate 73.9 mL/min (90-130); Glucose 149 mg/dL (65-115); HDL Cholesterol 44 mg/dL (60-100); LDL Cholesterol Calculated 79 mg/dL (50-129); Osmolality Calculated 281 mOsm/kg (285-295); Potassium 3.5 mmol/L (3.5-5.1); Sodium 133 mmol/L (136-145); Total Bilirubin 0.7 mg/dL (0.15-1.2); Total Protein 7.1 g/dL (6.6-8.7); Triglycerides 211 mg/dL (0-150); VLDL Cholestrol Calculation 42 mg/dL (0-30)
[2022-10-05] MEDS: famotidine 20 mg/2 mL INJ IVP (06:11)
--- NOTE | 2022-10-05 06:44 | PC.NURSE ---
Patient converted to sinus rhythm from afib rvr at 1106 on 10/04/22. Nurse notified provider and anesthesia prior to surgery.
--- NOTE | 2022-10-05 10:19 | PM.PN ---
Subjective Subjective: Patient underwent surgery yesterday and tolerated it well. Currently in normal sinus rhythm. Vitals/I&O/Wt Last Vital Signs Temp 98.5 F 10/05/22 09:18 Pulse 90 10/05/22 09:18 Resp 16 10/05/22 10:04 BP 134/74 10/05/22 09:18 Pulse Ox 94 10/05/22 10:04 O2 Del Method 10/05/22 09:18 O2 Flow Rate 2 10/04/22 17:38 10/04/22 10/05/22 10/05/22 22:59 06:59 14:59 Intake Total 1705.4 / 1705.4 730 / 2435.4 290 / 290 Output Total 575 / 575 575 / 1150 Balance 1130.4 / 1130.4 155 / 1285.4 290 / 290 Weight last 48 hrs Weight 238 lb 8 oz Weight 230 lb Physical Exam Narrative: GENERAL: Patient is alert, awake and oriented x3. [] NECK: No jugular vein distension. [] HEENT: No cyanosis. No icterus. No pallor. [] HEART: Regular S1 and S2. No murmur, rub or gallop. [] LUNGS: Clear to auscultate bilaterally. [] CENTRAL NERVOUS SYSTEM: Grossly nonfocal. [] EXTREMITIES: Lower extremities with 1+ edema bilaterally. Urinary Catheter Management: 2-way Urethral Latex Free: Cath Placed During This Visit: yes Reason for Continuing Indwelling Catheter: Acute Urinary Retention or Obstruction Urinary Catheter Date of Insertion: 10/04/22 Urinary Catheter Time of Insertion: 08:02 Data 10/05/22 03:05 10/05/22 03:05 Micro: Microbiology 10/04/22 09:12 Blood Culture - Preliminary Blood NEGATIVE TO DATE 10/04/22 09:10 Blood Culture - Preliminary Blood NEGATIVE TO DATE 10/04/22 02:42 Bacterial Antigens - Final Urine Kidney 10/04/22 02:42 Legionella Urinary Antigen - Final Unknown Source A&P Assessment and plan (1) Atrial fibrillation: (2) Hypertension: Plan Patient had presented with A-fib with RVR in setting of acute appendicitis. She converted to normal sinus rhythm with amiodarone. Will recommend metoprolol 25 mg twice daily. Can start aspirin once okay with surgery. She can follow-up with us as an outpatient. Decision regarding full dose anticoagulation can be made at that time. Order echocardiogram. Order event monitor Thank you for involving us with care of this patient. Patient is stable to be discharged from cardiology standpoint. Please call with questions. Attestations Medical Necessity Statement*: Care expected to cross 2 midnights Coding Level of Care Code Acute Code for [facility] Fwd Diagnoses Atrial fibrillation I48.91 Hypertension I10
--- NOTE | 2022-10-05 10:32 | PM.PN ---
Subjective Subjective: Patient is in sinus rhythm Postoperatively doing much better Blood pressure has improved Passing gas No bowel movement yet Tolerating her breakfast Afebrile No postop complications Vitals/I&O/Wt Last Vital Signs Temp 98.5 F 10/05/22 09:18 Pulse 90 10/05/22 09:18 Resp 16 10/05/22 10:04 BP 134/74 10/05/22 09:18 Pulse Ox 94 10/05/22 10:04 O2 Del Method 10/05/22 09:18 O2 Flow Rate 2 10/04/22 17:38 10/04/22 10/05/22 10/05/22 22:59 06:59 14:59 Intake Total 1705.4 / 1705.4 730 / 2435.4 290 / 290 Output Total 575 / 575 575 / 1150 Balance 1130.4 / 1130.4 155 / 1285.4 290 / 290 Weight last 48 hrs Weight 108.182 kg Weight 104.326 kg Physical Exam Narrative: Patient is laying supine Abdomen soft Surgical scar with good granulation tissue No active bleeding or drainage Abdomen soft Awake and alert Normal sinus rhythm Hemodynamically stable Pleasant and cooperative Nonfocal neuro exam doing well on room air Urinary Catheter Management: 2-way Urethral Latex Free: Cath Placed During This Visit: yes Reason for Continuing Indwelling Catheter: Acute Urinary Retention or Obstruction Urinary Catheter Date of Insertion: 10/04/22 Urinary Catheter Time of Insertion: 08:02 Data 10/05/22 03:05 10/05/22 03:05 Micro: Microbiology 10/04/22 09:12 Blood Culture - Preliminary Blood NEGATIVE TO DATE 10/04/22 09:10 Blood Culture - Preliminary Blood NEGATIVE TO DATE 10/04/22 02:42 Bacterial Antigens - Final Urine Kidney 10/04/22 02:42 Legionella Urinary Antigen - Final Unknown Source A&P Assessment and plan (1) Leukocytosis: (2) Hypertension: (3) Atrial fibrillation with RVR: (4) Acute appendicitis: Plan Postop day 1 Passing flatus No bowel movement yet Tolerating diet A-fib converted to sinus rhythm It was likely infectious related She converted yesterday to normal sinus rhythm I would not continue anticoagulating agent after discharge if she remains in sinus rhythm Request pulse oximetry study overnight to rule out sleep apnea I will request echo today Appreciate cardiology recommendations Status post appendectomy Doing well If patient is tolerating diet, having bowel movement, passing flatus I might be able to discharge her by Friday we will follow-up with general surgery recommendations Significant leukocytosis related to appendicitis Anticipating interval improved Discontinue IV fluids Patient tolerating diet DVT prophylaxis on board Continue IV antibiotics until she is discharged Regular diet Full code DVT prophylaxis added today Added bowel regimen today Attestations Medical Necessity Statement*: Continue medical management and Moderate Time for a total of 30 minutes, includes reviewing past or interval history, examining/interviewing patient, placing orders, counseling patient/family/other support, updating patient/family/other support, discussing plan of care with staff, communicating with other healthcare providers, documenting encounter and coordinating care Diagnoses Leukocytosis D72.829 Hypertension I10 Atrial fibrillation with RVR I48.91 Acute appendicitis K35.80
[2022-10-05] MEDS: enoxaparin 40 mg/0.4 mL Syringe SUBCUT (11:04)
[2022-10-05] MEDS: lisinopril 10 mg Tablet PO (11:05)
[2022-10-05] MEDS: sennosides-docusate Tablet 1 TAB PO (11:05)
--- NOTE | 2022-10-05 11:15 | P.DS_ITS ---
Discharge Providers Date of Admission: 10/04/22 04:21 Date of Discharge: October 05, 2022 Attending Provider at Admission: Tony Ochoa MD Attending Provider at Discharge: Livia Guidry MD Primary Care Provider: Chucho Mcgraw MD Diagnoses at Discharge Discharge Diagnosis (1) Leukocytosis: Status: Acute (2) Hypertension: Status: Acute (3) Atrial fibrillation with RVR: Status: Acute (4) Acute appendicitis: Status: Acute Reason for Visit Reason for Visit: V\ABD Pain, Heart Racing Hospital Course Hospital Course 57 female who was admitted for management of appendicitis, A-fib RVR, with use of amiodarone she converted to sinus rhythm within 10 hours, status post appendectomy by Dr. Carbajal, no postoperative complications, she did get clearance from cardiology before surgery, patient did remarkably well, she is tolerating diet, passing flatus, hemodynamically stable. Blood pressure improved as well. She remained afebrile. I will discharge her on opioids, bowel regimen, lisinopril low-dose and Augmentin for 5 days. She will follow-up with Dr. Albert within 2 weeks. Physical Exam Narrative: Patient is laying supine Abdomen soft Surgical scar with good granulation tissue No active bleeding or drainage Abdomen soft Awake and alert Normal sinus rhythm Hemodynamically stable Pleasant and cooperative Nonfocal neuro exam ?doing well on room air Urinary Catheter Management: 2-way Urethral Latex Free: Cath Placed During This Visit: yes Reason for Continuing Indwelling Catheter: Acute Urinary Retention or Obstruction Urinary Catheter Date of Insertion: 10/04/22 Urinary Catheter Time of Insertion: 08:02 Discharge Data Studies Completed and Pending Completed Studies During Hospitalization Category Date Time Status CT abdomen pelvis w con* [id number] Stat Cat Scan 10/04/22 01:28 Completed CXRP [XR chest 1V portable [id number]] Stat Exams 10/04/22 01:10 Completed Pending at discharge Category Date Time Status Basic Metabolic Panel AM LABS Lab 10/06/22 04:00 Ordered Blood Culture Stat Lab 10/04/22 09:12 Results Complete Blood Count w/Auto AM LABS Lab 10/06/22 04:00 Ordered MRSA by PCR Routine Lab 10/04/22 18:22 Received Pathology: Surgical [PTH] Routine Pth 10/04/22 16:57 Ordered CV. echo complete* [id number] Routine Ultrasound 10/05/22 08:16 Ordered Radiology Impressions Chest X-Ray 10/04/22 01:10 IMPRESSION: No acute findings. Abdomen/Pelvis CT 10/04/22 01:28 IMPRESSION: Positive for acute appendicitis. No convincing evidence of perforation. ADDENDUM: 10/04/22 0318 THIS REPORT CONTAINS FINDINGS THAT MAY BE CRITICAL TO PATIENT CARE. The findings were verbally communicated via telephone conference with PUJA DUBOIS at 3:17 AM [employer]ION MANAGER on 10/04/2022. The findings were acknowledged and understood. Laboratory Results WBC 19.8 10^3/uL (4.0-10.0) H 10/05/22 03:05 RBC 4.28 10^6/uL (4.1-5.3) 10/05/22 03:05 Hgb 12.6 g/dL (11.5-15.3) 10/05/22 03:05 Hct 38.6 % (37.0-47.0) 10/05/22 03:05 MCV 90.2 fl (81-99) 10/05/22 03:05 MCH 29.4 pg (28.0-34.0) 10/05/22 03:05 MCHC 32.6 g/dL (30.0-36.0) 10/05/22 03:05 RDW 14.1 % (12.1-15.1) 10/05/22 03:05 Plt Count 270 10^3/cmm (130-400) 10/05/22 03:05 MPV 10.7 fL (7.4-10.4) H 10/05/22 03:05 Neut % (Auto) 88.1 % 10/05/22 03:05 Lymph % (Auto) 6.4 % 10/05/22 03:05 [place] % (Auto) 4.7 % 10/05/22 03:05 Eos % (Auto) 0.0 % 10/05/22 03:05 Baso % (Auto) 0.2 % 10/05/22 03:05 Neut # (Auto) 17.51 10^3/uL (1.8-7.7) H 10/05/22 03:05 Lymph # (Auto) 1.3 10^3/uL (0.8-4.8) 10/05/22 03:05 [place] # (Auto) 0.9 10^3/uL (0.2-0.9) 10/05/22 03:05 Eos # (Auto) 0.0 10^3/uL (0.0-0.8) 10/05/22 03:05 Baso # (Auto) 0.0 10^3/uL (0.0-0.1) 10/05/22 03:05 Nucleated RBC % (auto) 0 % 10/05/22 03:05 Nucleated RBCs # 0.0 /100WBC 10/05/22 03:05 APTT 29.3 SECONDS (23.9-36.7) 10/04/22 13:18 Sodium 133 mmol/L (136-145) L 10/05/22 03:05 Potassium 3.5 mmol/L (3.5-5.1) 10/05/22 03:05 Chloride 96 mmol/L (98-107) L 10/05/22 03:05 Carbon Dioxide 23 mmol/L (22-29) 10/05/22 03:05 Anion Gap 17.5 (5-19) 10/05/22 03:05 BUN 18 mg/dL (6-20) 10/05/22 03:05 Creatinine 0.8 mg/dL (0.5-0.9) 10/05/22 03:05 GFR Calculation 73.9 mL/min (90-130) L 10/05/22 03:05 Glucose 149 mg/dL (65-115) H 10/05/22 03:05 Estimat Average Glucose 103 10/05/22 03:05 Hemoglobin A1c 5.2 % (4.0-6.0) 10/05/22 03:05 Calculated Osmolality 281 mOsm/kg (285-295) L 10/05/22 03:05 Calcium 8.7 mg/dL (8.5-10.5) 10/05/22 03:05 Phosphorus 3.4 mg/dL (2.5-4.5) 10/04/22 01:20 Magnesium 1.6 mg/dL (1.7-2.3) L 10/04/22 01:20 Iron 39 ug/dL (37-145) 10/04/22 01:20 TIBC 466 mcg/dl 10/04/22 01:20 % Saturation 8.3 % (20-50) L 10/04/22 01:20 Unsat Iron Binding 427 ug/dL (112-347) H 10/04/22 01:20 Total Bilirubin 0.7 mg/dL (0.15-1.2) 10/05/22 03:05 AST 22 U/L (0-32) 10/05/22 03:05 ALT 23 U/L (0-33) 10/05/22 03:05 Alkaline Phosphatase 48 U/L (35-105) 10/05/22 03:05 Troponin T Baseline 7 ng/L (0-10) 10/04/22 01:20 Troponin T 120 Minute 22.45 ng/L (0-10) H 10/04/22 03:55 Delta Troponin T 15.45 ABS# (0-10) H* 10/04/22 03:55 Troponin T Hi Sens 6Hr 34.74 ng/L (0-10) H 10/04/22 09:12 Troponin T Hi Sens 6Hr Delta 27.74 ng/L (0-12) H* 10/04/22 09:12 C-Reactive Protein 184.7 mg/L (0.0-4.9) H 10/05/22 03:05 NT-Pro-B Natriuret Pep 80 pg/mL (0-125) 10/04/22 01:20 Total Protein 7.1 g/dL (6.6-8.7) 10/05/22 03:05 Albumin 3.8 g/dL (3.5-5.2) 10/05/22 03:05 Globulin 3.3 g/dL (1.3-4.6) 10/05/22 03:05 Triglycerides 211 mg/dL (0-150) H 10/05/22 03:05 Cholesterol 165 mg/dL (0-200) 10/05/22 03:05 LDL Cholesterol, Calc 79 mg/dL (50-129) 10/05/22 03:05 Total VLDL Cholesterol 42 mg/dL (0-30) H 10/05/22 03:05 HDL Cholesterol 44 mg/dL (60-100) L 10/05/22 03:05 Cholesterol/HDL Ratio 3.75 mg/dL (0.0-4.40) 10/05/22 03:05 Lipase 38 U/L (13-60) 10/04/22 01:20 Vitamin B12 628 pg/mL (232-1245) 10/04/22 01:20 Folate 6.8 ng/mL (4.8-37.3) 10/04/22 01:20 Procalcitonin 0.04 ng/mL (0-0.5) 10/04/22 01:20 TSH 1.41 uIU/mL (0.27-4.20) 10/04/22 01:20 Urine Color Colorless (Yellow) 10/04/22 02:42 Urine Appearance Clear (CLEAR) 10/04/22 02:42 Urine pH 5 (5-7) 10/04/22 02:42 Ur Specific [place] 1.020 (1.005-1.030) 10/04/22 02:42 Urine Protein 3+ (Negative) H 10/04/22 02:42 Urine Glucose (UA) Trace (Normal) H 10/04/22 02:42 Urine Ketones 1+ (Negative) H 10/04/22 02:42 Urine Blood 2+ (Negative) H 10/04/22 02:42 Urine Nitrate Negative (Negative) 10/04/22 02:42 Urine Bilirubin Neg (Negative) 10/04/22 02:42 Urine Urobilinogen Norm mg/dL (Negative) 10/04/22 02:42 Ur Leukocyte Esterase Negative (Negative) 10/04/22 02:42 Urine RBC 0-4 /hpf (0-2) H 10/04/22 02:42 Urine WBC 0-4 /hpf (0-5) H 10/04/22 02:42 Ur Squamous Epith Cells 5-10 /hpf (0-5) H 10/04/22 02:42 Amorphous Sediment Not Reportable 10/04/22 02:42 Urine Bacteria None /hpf (NONE) 10/04/22 02:42 Urine Yeast Trace /hpf 10/04/22 02:42 Urine Opiates Screen Negative ng/mL (Negative) 10/04/22 02:42 Ur Barbiturates Screen Negative ng/mL (Negative) 10/04/22 02:42 Ur Phencyclidine Scrn Negative ng/mL (Negative) 10/04/22 02:42 Ur Amphetamines Screen Negative ng/mL (Negative) 10/04/22 02:42 U Benzodiazepines Scrn Negative ng/mL (Negative) 10/04/22 02:42 Urine Cocaine Screen Negative ng/mL (Negative) 10/04/22 02:42 U Marijuana (THC) Screen Negative ng/mL (Negative) 10/04/22 02:42 Vitals Last Vital Signs Temp 98.5 F 10/05/22 09:18 Pulse 90 10/05/22 09:18 Resp 16 10/05/22 10:04 BP 134/74 10/05/22 09:18 Pulse Ox 94 10/05/22 10:04 O2 Del Method 10/05/22 09:18 O2 Flow Rate 2 10/04/22 17:38 Discharge Plan Discharge Patient Disposition: Home Condition: Stable Prescriptions: New oxycodone 5 mg Tablet 5 mg PO Q4H PRN (Reason: Moderate Pain) Qty: 10 0RF sennosides-docusate sodium [Stool Softener-Laxative] 8.6-50 mg Tablet 1 tab PO DAILY Qty: 20 0RF lisinopril 10 mg Tablet 10 mg PO DAILY Qty: 30 0RF amoxicillin-pot clavulanate 875-125 mg tablet 1 tab PO BID Qty: 10 0RF Discharge Orders: Discharge Order (Routine); Ordered 10/05/22 Ordered By: Livia Guidry Referrals: Gordo Albert DO [Physician] - 2 weeks Patient Instructions: Opioid Safety, Post Anesthesia Care Discharge Attestations Time Spent in Discharge Care*: less than 30 min Quality Metrics Clinical Quality Measures [ No reported AMI, CVA or VTE this stay] Coding Level of Care Code Acute Code for [facility] Diagnoses Leukocytosis D72.829 Hypertension I10 Atrial fibrillation with RVR I48.91 Acute appendicitis K35.80
--- NOTE | 2022-10-05 11:15 | PM.PN ---
Subjective Subjective: Doing well. Without complaints. Patient states that she feels 100% better. This patient is tolerating a regular diet. The patient's not eating a whole lot. The patient has passed flatus. She has not had a bowel movement. Medications: Reviewed: Yes Vitals/I&O/Wt Last Vital Signs Temp 98.5 F 10/05/22 09:18 Pulse 90 10/05/22 09:18 Resp 16 10/05/22 10:04 BP 134/74 10/05/22 09:18 Pulse Ox 94 10/05/22 10:04 O2 Del Method 10/05/22 09:18 O2 Flow Rate 2 10/04/22 17:38 10/04/22 10/05/22 10/05/22 22:59 06:59 14:59 Intake Total 1705.4 / 1705.4 730 / 2435.4 290 / 290 Output Total 575 / 575 575 / 1150 Balance 1130.4 / 1130.4 155 / 1285.4 290 / 290 Weight last 48 hrs Weight 238 lb 8 oz Weight 230 lb Physical Exam Narrative: General: No acute distress Lungs: Clear to auscultation Heart: Regular rate and rhythm, The patient's atrial fibrillation appears to have resolved. Abdomen: Morbidly obese, nontender. Incisions look good. The patient has positive bowel sounds. Urinary Catheter Management: 2-way Urethral Latex Free: Cath Placed During This Visit: yes Reason for Continuing Indwelling Catheter: Acute Urinary Retention or Obstruction Urinary Catheter Date of Insertion: 10/04/22 Urinary Catheter Time of Insertion: 08:02 Data 10/05/22 03:05 10/05/22 03:05 Micro: Microbiology 10/04/22 09:12 Blood Culture - Preliminary Blood NEGATIVE TO DATE 10/04/22 09:10 Blood Culture - Preliminary Blood NEGATIVE TO DATE 10/04/22 02:42 Bacterial Antigens - Final Urine Kidney 10/04/22 02:42 Legionella Urinary Antigen - Final Unknown Source A&P Assessment and plan (1) Acute appendicitis: Status post laparoscopic appendectomy. I believe this patient is stable enough to be discharged home at this time. The patient can follow-up with Dr. Albert in 5 to 7 days. Attestations Medical Necessity Statement*: Discharge per hospitalist Coding Level of Care Code Acute Code for [facility] Diagnoses Acute appendicitis K35.80
== END 2022-10-05 14:31 | disposition home or self-care (01) | DRG 343 ==
LOC: ER 03:36 → CSU 04:38
PROVIDERS: Nurse Practitioner Family; Surgery Surgical Critical Care; Admitting Provider Student in an Organized Health Care Education/Training Program; Emergency Provider Emergency Medicine; PCP Family Medicine; Visit Provider Internal Medicine
PROC: 0DTJ4ZZ Resection of Appendix, Percutaneous Endoscopic Approach (ICD-10-PCS; CPT 44970; principal; 2022-10-04 14:20)
DX: K35.890 Other acute appendicitis without perforation or gangrene (principal); I10 Essential (primary) hypertension; I48.91 Unspecified atrial fibrillation; Z87.891 Personal history of nicotine dependence; E66.01 Morbid (severe) obesity due to excess calories; Z68.39 Body mass index [BMI] 39.0-39.9, adult
CPT/HCPCS: 12345; 36415; 51702; 71045; 74177; 80053; 80061; 80306; 81001; 82607; 82746; 83036; 83540; 83550; 83690; 83735; 83880; 84100; 84145; 84443; 84484; 85025; 85730; 86140; 86403; 87040; 87449; 87641; 88304; 93005; 94664; 96365; 96367; 96372; 96375; 96376; 99255; 99285; J0282; J0330; J0360; J1100; J1170; J1200; J1644; J1650; J1885; J2270; J2370; J2405; J2543; J2704; J2710; J3010; J3490; J7030; J7042; J7060; Q9967